=== PATIENT | female | born 1950 | race Caucasian/White ===

== ENCOUNTER 2018-12-14 16:12 | Emergency (ER) | payer OTHER, MEDICARE, BC ==
[2018-12-14 16:21] VITALS: BP 120/83
--- NOTE | 2018-12-14 17:42 | EDM.PDOC ---
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 The patient reports she tripped over an oxygen machine and landed on her left wrist. The patient reports diffuse tenderness in her shoulders and tenderness to her right cheek. Onset: Today Duration: Constant Location: Reports: Upper Extremity, Left Quality: Reports: Ache Severity: Moderate Improves with: Reports: None Worsens with: Reports: None Associated Symptoms: Reports: No Other Symptoms - Related Data Allergies Allergy/AdvReac Type Severity Reaction Status Date / Time No Known Allergies Allergy Verified 03/20/16 08:43 Home Meds: Home Meds Lisinopril/Hydrochlorothiazide [Lisinopril-Hctz 20-12.5 mg Tab] 1 tab PO DAILY 07/11/14 [History] Omeprazole 20 mg PO DAILY 07/11/14 [History] Levothyroxine Sodium 125 mcg PO DAILY 12/29/15 [History] Metoprolol Succinate [Toprol XL] 100 mg PO DAILY 12/29/15 [History] Oxybutynin 5 mg PO TID PRN 12/29/15 [History] buPROPion HCl [Wellbutrin Xl] 300 mg PO DAILY 12/29/15 [History] Hydrocodone/Acetaminophen [Hydrocodon-Acetaminophn 10-325] 1 tab PO ASDIRECTED PRN 03/20/16 [History] Ibuprofen [Motrin] 800 mg PO Q6H PRN 03/20/16 [History] Past Medical History - Past Health History Medical/Surgical History: Denies Medical/Surgical History HEENT History: Reports: Impaired Vision Other HEENT History: wears glasses Cardiovascular History: Reports: Hypertension Respiratory History: Reports: Bronchitis, Recurrent, Pneumonia, Recurrent Gastrointestinal History: Reports: GERD Genitourinary History: Reports: Renal Calculus, Urinary Incontinence Musculoskeletal History: Reports: Osteoporosis Neurological History: Reports: None Psychiatric History: Reports: Depression Endocrine/Metabolic History: Reports: Hypothyroidism Hematologic History: Reports: None Immunologic History: Reports: None Oncologic (Cancer) History: Reports: None Dermatologic History: Reports: None - Infectious Disease History Infectious Disease History: Reports: Chicken Pox, Measles, Mumps - Past Surgical History GI Surgical History: Reports: Appendectomy, Colonoscopy, EGD Female Surgical History: Reports: Hysterectomy, Oophorectomy Social & Family History - Family History Family Medical History: Noncontributory GI: Reports: GERD Oncologic: Reports: Lung - Caffeine Use Caffeine Use: Reports: Coffee - Living Situation & Occupation Living situation: Reports: with Family Occupation: Employed Review of Systems - Review of Systems Review Of Systems: ROS reveals no pertinent complaints other than HPI. ED EXAM, GENERAL - Physical Exam Exam: See Below Exam Limited By: No Limitations General Appearance: Alert, WD/WN, No Apparent Distress Eye Exam: Bilateral Eye: EOMI, Normal Inspection, PERRL Ears: Normal External Exam, Normal Canal, Hearing Grossly Normal, Normal TMs Nose: Normal Inspection, Normal Mucosa, No Blood Throat/Mouth: Normal Inspection, Normal Lips, Normal Teeth, Normal Gums, Normal Oropharynx, Normal Voice, No Airway Compromise Head: Atraumatic, Normocephalic Neck: Normal Inspection, Supple, Non-Tender, Full Range of Motion Respiratory/Chest: No Respiratory Distress, Lungs Clear, Normal Breath Sounds, No Accessory Muscle Use, Chest Non-Tender Cardiovascular: Normal Peripheral Pulses, Regular Rate, Rhythm, No Edema, No Gallop, No JVD, No Murmur, No Rub GI/Abdominal: Normal Bowel Sounds, Soft, Non-Tender, No Organomegaly, No Distention, No Abnormal Bruit, No Mass (Female) Exam: Deferred Rectal (Female) Exam: Deferred Back Exam: Normal Inspection, Full Range of Motion, NT Extremities: Other (left rist tenderness, swelling and loss of range of motion. Bilateral shoulder tenderness to palpation. ) Neurological: Alert, Oriented, CN II-XII Intact, Normal Cognition, Normal Gait, Normal Reflexes, No Motor/Sensory Deficits Psychiatric: Normal Affect, Normal Mood Skin Exam: Warm, Dry, Intact, Normal Color, No Rash Lymphatic: No Adenopathy Course - Vital Signs Last Recorded V/S: Last Vital Signs Temp 35.4 C 12/14/18 16:19 Pulse 77 12/14/18 16:19 Resp 18 12/14/18 16:19 BP 120/83 12/14/18 16:19 Pulse Ox 98 12/14/18 16:19 - Orders/Labs/Meds Orders: Active Orders 24 hr Category Date Time Status Wrist Comp Min 3V Lt [CR] Urgent Exams 12/14/18 16:34 Ordered Departure - Departure Time of Disposition: 17:37 Disposition: Home, Self-Care 01 Condition: Fair Clinical Impression: Strain of left wrist Qualifiers: Encounter type: initial encounter Qualified Code(s): S66.912A - Strain of unspecified muscle, fascia and tendon at wrist and hand level, left hand, initial encounter - Discharge Information *PRESCRIPTION DRUG MONITORING PROGRAM REVIEWED*: Not Applicable *COPY OF PRESCRIPTION DRUG MONITORING REPORT IN PATIENT ROSARIO: Not Applicable Instructions: Wrist Sprain, Adult Forms: ED Department Discharge Care Plan Goals: The patient was advised of the examination and x-ray results during the visit. The patient was placed in a left wrist splint while in the ED. The patient was encouraged to rest, ice and elevate her wrist over the next 24 hours. The patient's rings were removed during the visit (3 were removed without difficulties and 1 was cut off). If the patient has any additional symptoms or concerns, the patient should either return to the emergency department or visit her primary care facility. - My Orders Last 24 Hours: My Active Orders 12/14/18 16:34 Wrist Comp Min 3V Lt [CR] Urgent - Assessment/Plan Last 24 Hours: My Active Orders 12/14/18 16:34 Wrist Comp Min 3V Lt [CR] Urgent I have read and agree with the documentation that has been completed regarding this visit. By signing this record, I attest that the documentation was completed in my physical presence and is an accurate record of the encounter.
== END 2018-12-14 17:55 | disposition home or self-care (01) ==
LOC: DL.ED 16:12
DX: S66.912A Strain of unspecified muscle, fascia and tendon at wrist and hand level, left hand, initial encounter (principal); I10 Essential (primary) hypertension; K21.9 Gastro-esophageal reflux disease without esophagitis; E03.9 Hypothyroidism, unspecified; Y99.0 Civilian activity done for income or pay; W18.09XA Striking against other object with subsequent fall, initial encounter; Z79.899 Other long term (current) drug therapy
CPT/HCPCS: 73110-LT; 99283-25

== ENCOUNTER 2020-05-23 11:45 | Inpatient (IN) | payer MEDICARE, BC ==
--- NOTE | 2020-05-23 11:40 | PCM.HP ---
H&P History of Present Illness - General Date of Service: 05/23/20 Admit Problem/Dx: Admission Diagnosis/Problem Admission Diagnosis/Problem Fall Source of Information: Patient, Old Records - History of Present Illness Initial Comments - Free Text/Narative: Patient is a 69-year-old female with medical history significant for hypertension, hypothyroidism, overactive bladder, depression who was admitted for intractable right hip pain, minimal displaced fracture involving the right pubic bone extending into the right superior pubic ramus. Patient worked with PT and OT. Had some improvement but not back to baseline. She is being admitted to swing bed to continue therapies. Continues to have pain with movement. Denies f/c, chest pain, shortness of breath, n/v/d/c, dysuria, hematuria, or any new symptoms. - Related Data Allergies/Adverse Reactions: Allergies Allergy/AdvReac Type Severity Reaction Status Date / Time No Known Allergies Allergy Verified 05/18/20 20:57 Home Medications: Home Meds Lisinopril/Hydrochlorothiazide [Lisinopril-Hctz 20-12.5 mg Tab] 12.5 mg PO DAILY 07/11/14 [History] Omeprazole 20 mg PO DAILY 07/11/14 [History] Metoprolol Succinate [Toprol XL] 100 mg PO DAILY 12/29/15 [History] buPROPion HCL [Wellbutrin Xl] 300 mg PO DAILY 12/29/15 [History] Aspirin [[place] Aspirin] 81 mg PO DAILY 05/18/20 [History] Mirabegron [Myrbetriq] 25 mg PO DAILY 05/18/20 [History] Tolterodine [Detrol LA 24 Hr] 2 mg PO DAILY 05/18/20 [History] Venlafaxine HCl [Venlafaxine ER] 37.5 mg PO DAILY 05/18/20 [History] Levothyroxine 112 mcg PO ACBREAKFAST 05/23/20 [History] Past Medical History - Past Health History Medical/Surgical History: Denies Medical/Surgical History HEENT History: Reports: Impaired Vision Other HEENT History: wears glasses Cardiovascular History: Reports: Hypertension Respiratory History: Reports: Bronchitis, Recurrent, Pneumonia, Recurrent Gastrointestinal History: Reports: GERD Genitourinary History: Reports: Chronic Renal Insuffiency, Renal Calculus, Urinary Incontinence Musculoskeletal History: Reports: Osteoporosis Neurological History: Reports: None Psychiatric History: Reports: Depression Endocrine/Metabolic History: Reports: Hypothyroidism Hematologic History: Reports: None Immunologic History: Reports: None Oncologic (Cancer) History: Reports: None Dermatologic History: Reports: None - Infectious Disease History Infectious Disease History: Reports: Chicken Pox, Measles, Mumps - Past Surgical History Head Surgeries/Procedures: Reports: None GI Surgical History: Reports: Appendectomy, Colonoscopy, EGD Female Surgical History: Reports: Hysterectomy, Oophorectomy Social & Family History - Family History Family Medical History: No Pertinent Family History GI: Reports: GERD Oncologic: Reports: Lung - Caffeine Use Caffeine Use: Reports: Coffee - Living Situation & Occupation Living situation: Reports: with Family Occupation: Employed H&P Review of Systems - Review of Systems: Review Of Systems: Comprehensive ROS is negative, except as noted in HPI. Exam - Exam Exam: See Below - Exam General: Alert, Oriented, Mild Distress HEENT: Conjunctiva Clear, EOMI, Mucosa Moist & [place] Neck: Supple, Trachea Midline Lungs: Clear to Auscultation, Normal Respiratory Effort Cardiovascular: Regular Rate, Regular Rhythm, Normal S1, Normal S2 GI/Abdominal Exam: Normal Bowel Sounds, Soft, Non-Tender, No Distention Extremities: Normal Inspection, Normal Range of Motion, No Pedal Edema Peripheral Pulses: 2+: Radial (L), Dorsalis Pedis (L), Dorsalis Pedis (R) Skin: Warm, Dry, Intact Neuro Extensive - Mental Status: Alert, Oriented x3, Normal Mood/Affect Psychiatric: Alert, Normal Affect, Normal Mood - Problem List (1) Hypertension SNOMED Code(s): 77922980 ICD Code: I10 - ESSENTIAL (PRIMARY) HYPERTENSION Status: Acute (2) Hypothyroidism SNOMED Code(s): 06900413 ICD Code: E03.9 - HYPOTHYROIDISM, UNSPECIFIED Status: Acute (3) Odynophagia SNOMED Code(s): 23365052 ICD Code: R13.10 - DYSPHAGIA, UNSPECIFIED Status: Acute (4) Pubic bone fracture SNOMED Code(s): 72024128 ICD Code: S32.509A - UNSP FRACTURE OF UNSP PUBIS, INIT ENCNTR FOR CLOSED FRACTURE Status: Acute Problem List Initiated/Reviewed/Updated: Yes Orders Last 24hrs: Active Orders 24 hr Category Date Time Status Patient Status [ADT] Routine ADT 05/23/20 11:32 Ordered Intake and Output [RC] QSHIFT Care 05/23/20 11:29 Ordered Oxygen Therapy [RC] PRN Care 05/23/20 11:29 Ordered Oxygen Therapy [RC] PRN Care 05/23/20 11:32 Ordered Up ad Marie [RC] ASDIRECTED Care 05/23/20 11:29 Ordered VTE/DVT Education [RC] PER UNIT ROUTINE Care 05/23/20 11:29 Ordered VTE/DVT Education [RC] PER UNIT ROUTINE Care 05/23/20 11:32 Ordered Vital Signs [RC] Q4H Care 05/23/20 11:29 Ordered Vital Signs [RC] QSHIFT Care 05/23/20 11:32 Ordered Consult to Occupational Therapy [OT Evaluation and Cons 05/23/20 11:29 Ordered Treatment] [CONS] Routine Consult to Physical Therapy [PT Evaluation and Cons 05/23/20 11:29 Ordered Treatment] [CONS] Routine OT Evaluation and Treatment [CONS] Routine Cons 05/23/20 11:29 Ordered Regular Diet [DIET] Diet 05/23/20 Breakfast Ordered Acetaminophen [TylenoL] Med 05/23/20 11:29 Ordered 650 mg PO Q4H PRN Alum Hydrox/Mag Hydrox/Simeth [Mag-Al Plus] Med 05/23/20 11:30 Ordered 30 ml PO TID@0730,1130,1630 Aspirin Med 05/24/20 09:00 Ordered 81 mg PO DAILY Docusate Sodium [Colace] Med 05/23/20 11:29 Ordered 100 mg PO BID PRN Enoxaparin [Lovenox] Med 05/24/20 09:00 Ordered 40 mg SUBCUT DAILY HYDROmorphone [Dilaudid] Med 05/23/20 11:29 Ordered 0.5 mg IVPUSH Q2H PRN Levothyroxine [Synthroid] Med 05/24/20 06:00 Ordered 100 mcg PO ACBRK Lidocaine 5% [Lidoderm 5%] Med 05/24/20 09:00 Ordered 700 mg TOP DAILY@0900 Metoprolol Succinate [Toprol XL] Med 05/24/20 09:00 Ordered 100 mg PO DAILY Metoprolol Succinate [Toprol XL] Med 05/24/20 09:00 Ordered 100 mg PO DAILY Mirabegron [Myrbetriq] Med 05/24/20 09:00 Ordered 25 mg PO DAILY Omeprazole Med 05/24/20 09:00 Ordered 20 mg PO DAILY Omeprazole Med 05/24/20 09:00 Ordered 20 mg PO DAILY Ondansetron [Zofran] Med 05/23/20 11:29 Ordered 4 mg IVPUSH Q4H PRN Remove Patch Med 05/23/20 21:00 Ordered 1 ea TRDERM BEDTIME Sodium Chloride 0.9% [Saline Flush] Med 05/23/20 11:29 Ordered 10 ml FLUSH ASDIRECTED PRN Sodium Chloride 0.9% [Saline Flush] Med 05/23/20 11:29 Ordered 10 ml FLUSH ASDIRECTED PRN Tolterodine [Detrol LA 24 Hr] Med 05/24/20 09:00 Ordered 2 mg PO DAILY Tolterodine [Detrol LA 24 Hr] Med 05/24/20 09:00 Ordered 2 mg PO DAILY Venlafaxine [Effexor XR] Med 05/24/20 09:00 Ordered 37.5 mg PO DAILY buPROPion HCL [Wellbutrin Xl] Med 05/24/20 09:00 Ordered 300 mg PO DAILY buPROPion [Wellbutrin XL] Med 05/24/20 09:00 Ordered 300 mg PO DAILY lisinopriL [Prinivil] Med 05/24/20 09:00 Ordered 20 mg PO DAILY oxyCODONE Med 05/23/20 11:29 Ordered 5 mg PO Q4H PRN polyethylene glycoL 3350 [MiraLAX] Med 05/23/20 11:29 Ordered 17 gm PO DAILY PRN Saline Lock Insert [OM.PC] Routine Oth 05/23/20 11:29 Ordered Resuscitation Status Routine Resus Stat 05/23/20 11:32 Ordered Medication Orders Acetaminophen (Tylenol) 650 mg PO Q4H PRN PRN Reason: Pain (Mild 1-3)/fever Al Hydroxide/Mg Hydroxide (Mag-Al Plus) 30 ml PO TID@0730,1130,1630 [facility] Aspirin (Aspirin) 81 mg PO DAILY [facility] Bupropion HCl (Wellbutrin Xl) 300 mg PO DAILY [facility] Docusate Sodium (Colace) 100 mg PO BID PRN PRN Reason: Constipation Enoxaparin Sodium (Lovenox) 40 mg SUBCUT DAILY [facility] Hydromorphone HCl (Dilaudid) 0.5 mg IVPUSH Q2H PRN PRN Reason: Pain (severe 7-10) Levothyroxine Sodium (Synthroid) 100 mcg PO ACBRK [facility] Lidocaine (Lidoderm 5%) 700 mg TOP DAILY@0900 [facility] Lisinopril (Prinivil) 20 mg PO DAILY [facility] Metoprolol Succinate (Toprol Xl) 100 mg PO DAILY [facility] Miscellaneous Information (Remove Patch) 1 ea TRDERM BEDTIME [facility] Omeprazole (Omeprazole) 20 mg PO DAILY [facility] Ondansetron HCl (Zofran) 4 mg IVPUSH Q4H PRN PRN Reason: Nausea/Vomiting Oxycodone HCl (Oxycodone) 5 mg PO Q4H PRN PRN Reason: Pain (moderate 4-6) Polyethylene Glycol (Miralax) 17 gm PO DAILY PRN PRN Reason: Constipation Sodium Chloride (Saline Flush) 10 ml FLUSH ASDIRECTED PRN PRN Reason: Keep Vein Open Sodium Chloride (Saline Flush) 10 ml FLUSH ASDIRECTED PRN PRN Reason: Keep Vein Open Tolterodine Tartrate (Detrol La 24 Hr) 2 mg PO DAILY [facility] Venlafaxine HCl (Effexor Xr) 37.5 mg PO DAILY [facility] Assessment/Plan Comment:: Patient is a 69-year-old female with medical history significant for hypertension, hypothyroidism, overactive bladder, depression who was admitted for intractable right hip pain, minimal displaced fracture involving the right pubic bone extending into the right superior pubic ramus. #Intractable right hip pain #Fracture of right pubic bone #Fall Patient present with right hip pain after fall. MRI showed acutely minimally displaced fracture involving the right pubic bone extending into the right superior pubic ramus. 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 -Continue pain regimen -PT and OT -Fall precautions #Hypertension: Blood pressures at goal Continue Toprol and lisinopril Hold antihypertensives for systolic blood pressures less than 110. #Odynophagia/Dysphagia: -Patient reports substernal pain with swallowing. Feels pills and food get stuck. -Trial of maalox -Swallow eval. #Hyypokalemia: K was 3.4 on 05/18 - Check renal function panel. #Hypothyroidism Continue Synthroid DVT prophylaxis: Heparin GI prophylaxis: Cardiac diet
[~2020-05-23 11:45] MED LIST: Acetaminophen 325 MG Tab PO PRN; Docusate Sodium 100 MG Cap PO PRN; HYDROmorphone 0.5 MG/0.5 ML Syringe IVPUSH PRN; Ondansetron 4 MG/2 ML SDV IVPUSH PRN; Polyethylene Glycol 3350 Powder 17 GM Packet PO PRN; Sodium Chloride 0.9% 10 ML Syringe FLUSH PRN
[2020-05-23] MEDS: Aluminum Hydroxide/Magnesium Hydroxide/Simethicone Susp 30 ML Cup PO SCH ×2 (13:20→16:37)
[2020-05-23] MEDS: oxyCODONE 5 MG Tab PO PRN ×2 (13:28→17:37)
[2020-05-24] MEDS: oxyCODONE 5 MG Tab PO PRN ×4 (00:59→22:44)
[2020-05-24] MEDS: Levothyroxine 100 MCG Tab PO SCH (06:49)
[2020-05-24] MEDS: Aluminum Hydroxide/Magnesium Hydroxide/Simethicone Susp 30 ML Cup PO SCH ×3 (07:49→17:00)
[2020-05-24] MEDS: Omeprazole 20 MG Cap.CR PO SCH (08:30)
[2020-05-24] MEDS: buPROPion 150 MG Tab.ER PO SCH (08:30)
[2020-05-24] MEDS: Metoprolol Succinate 50 MG Tab.ER PO SCH (08:30)
[2020-05-24] MEDS: Lidocaine 5% 700 MG Patch TOP SCH (08:31)
[2020-05-24] MEDS: Tolterodine 2 MG Cap.ER PO SCH (08:31)
[2020-05-24] MEDS: Enoxaparin 40 MG/0.4 ML Syringe SUBCUT SCH (08:31)
[2020-05-24] MEDS: Lisinopril 20 MG Tab PO SCH (08:31)
[2020-05-24] MEDS: Venlafaxine 37.5 MG Cap.ER PO SCH (08:31)
[2020-05-24] MEDS: Aspirin 81 MG Tab.Chew PO SCH (08:31)
[2020-05-24] MEDS ORDERED: Tolterodine 2 MG Cap.ER PO SCH (09:00)
[2020-05-24] MEDS ORDERED: Non-Formulary Medication 1 Each (Metoprolol Succinate [Toprol Xl] 100 MG) PO SCH (09:00)
[2020-05-24] MEDS ORDERED: Omeprazole 20 MG Cap.CR PO SCH (09:00)
[2020-05-24] MEDS ORDERED: Non-Formulary Medication 1 Each (Bupropion Hcl [Wellbutrin Xl] 300 MG) PO SCH (09:00)
[2020-05-25] MEDS: oxyCODONE 5 MG Tab PO PRN ×4 (04:09→21:47)
[2020-05-25] MEDS: Levothyroxine 100 MCG Tab PO SCH (05:48)
[2020-05-25] MEDS: Enoxaparin 40 MG/0.4 ML Syringe SUBCUT SCH (08:48)
[2020-05-25] MEDS: Aluminum Hydroxide/Magnesium Hydroxide/Simethicone Susp 30 ML Cup PO SCH ×3 (08:48→16:43)
[2020-05-25] MEDS: Metoprolol Succinate 50 MG Tab.ER PO SCH (08:48)
[2020-05-25] MEDS: Lidocaine 5% 700 MG Patch TOP SCH (08:49)
[2020-05-25] MEDS: Tolterodine 2 MG Cap.ER PO SCH (08:49)
[2020-05-25] MEDS: Venlafaxine 37.5 MG Cap.ER PO SCH (08:49)
[2020-05-25] MEDS: buPROPion 150 MG Tab.ER PO SCH (08:49)
[2020-05-25] MEDS: Aspirin 81 MG Tab.Chew PO SCH (08:49)
[2020-05-25] MEDS: Lisinopril 20 MG Tab PO SCH (08:49)
[2020-05-25] MEDS: Omeprazole 20 MG Cap.CR PO SCH (08:49)
[2020-05-26] MEDS: oxyCODONE 5 MG Tab PO PRN ×2 (04:21→10:29)
[2020-05-26] MEDS: Levothyroxine 100 MCG Tab PO SCH (06:39)
--- NOTE | 2020-05-26 09:38 | PCM.DCSUM1 ---
Discharge Summary - Hospital Course Free Text/Narrative:: Patient is a 69-year-old female with medical history significant for hypertension, hypothyroidism, overactive bladder, depression who was admitted for intractable right hip pain, minimal displaced fracture involving the right pubic bone extending into the right superior pubic ramus. Patient worked with PT and OT. Had some improvement but not back to baseline. Shewas admitted to swing bed to continue therapies. Patient's activity tolerance improved over the weekend. She is being discharged home. She will need front wheel walker with skis to decrease her risk of falls. HPI Initial Comments: Patient is a 69-year-old female with medical history significant for hypertension, hypothyroidism, overactive bladder, depression who was admitted for intractable right hip pain, minimal displaced fracture involving the right pubic bone extending into the right superior pubic ramus. Patient worked with PT and OT. Had some improvement but not back to baseline. She is being admitted to swing bed to continue therapies. Continues to have pain with movement. Denies f/c, chest pain, shortness of breath, n/v/d/c, dysuria, hematuria, or any new symptoms. Diagnosis: Stroke: No - Discharge Data Discharge Date: 05/26/20 Discharge Disposition: Home, Self-Care 01 Condition: Good - Referral to Home Health Primary Care Physician: MINH Koo - Discharge Diagnosis/Problem(s) (1) Hypertension SNOMED Code(s): 00135531 ICD Code: I10 - ESSENTIAL (PRIMARY) HYPERTENSION Status: Acute Current Visit: No (2) Hypothyroidism SNOMED Code(s): 03540233 ICD Code: E03.9 - HYPOTHYROIDISM, UNSPECIFIED Status: Acute Current Visit: No (3) Odynophagia SNOMED Code(s): 93387199 ICD Code: R13.10 - DYSPHAGIA, UNSPECIFIED Status: Acute Current Visit: No (4) Pubic bone fracture SNOMED Code(s): 07368212 ICD Code: S32.509A - UNSP FRACTURE OF UNSP PUBIS, INIT ENCNTR FOR CLOSED FRACTURE Status: Acute Current Visit: No - Patient Summary/Data Consults: Consultations 05/23/20 11:29 Consult to Occupational Therapy [OT Evaluation and Treatment] [CONS] Routine Consult to Physical Therapy [PT Evaluation and Treatment] [CONS] Routine OT Evaluation and Treatment [CONS] Routine - Patient Instructions Activity: As Tolerated, No Lifting Over 10 Pounds, No Strenuous Activities - Discharge Plan *PRESCRIPTION DRUG MONITORING PROGRAM REVIEWED*: No *COPY OF PRESCRIPTION DRUG MONITORING REPORT IN PATIENT ROSARIO: No Prescriptions/Med Rec: Acetaminophen [Tylenol] 650 mg PO Q4H PRN #60 tablet PRN Reason: Pain Home Medications: Home Meds Lisinopril/Hydrochlorothiazide [Lisinopril-Hctz 20-12.5 mg Tab] 12.5 mg PO DAILY 07/11/14 [History] Omeprazole 20 mg PO DAILY 07/11/14 [History] Metoprolol Succinate [Toprol XL] 100 mg PO DAILY 12/29/15 [History] buPROPion HCL [Wellbutrin Xl] 300 mg PO DAILY 12/29/15 [History] Aspirin [[place] Aspirin] 81 mg PO DAILY 05/18/20 [History] Mirabegron [Myrbetriq] 25 mg PO DAILY 05/18/20 [History] Tolterodine [Detrol LA 24 Hr] 2 mg PO DAILY 05/18/20 [History] Venlafaxine HCl [Venlafaxine ER] 37.5 mg PO DAILY 05/18/20 [History] Levothyroxine 112 mcg PO ACBREAKFAST 05/23/20 [History] Acetaminophen [Tylenol] 650 mg PO Q4H PRN #60 tablet 05/26/20 [Rx] Oxygen Therapy Mode: Room Air - Discharge Summary/Plan Comment DC Time >30 min.: Yes - General Info Date of Service: 05/26/20 Admission Dx/Problem (Free Text: Admission Diagnosis/Problem Admission Diagnosis/Problem Fall Subjective Update: Reports gait is improved and has been ambulating on her own. Continues to have pain with movement. Denies f/c, chest pain, shortness of breath, n/v/d/c, dysuria, hematuria, or any new symptoms. - Patient Data Vitals - Most Recent: Last Vital Signs Temp 97.8 F 05/25/20 21:34 Pulse 65 05/25/20 21:34 Resp 14 05/25/20 21:34 BP 140/70 05/25/20 21:34 Pulse Ox 99 05/25/20 21:34 Weight - Most Recent: 151 lb I&O - Last 24 hours: Intake & Output 05/25/20 05/26/2020 22:59 06:59 14:59 Intake Total 1210 Balance 1210 Med Orders - Current: Current Medications Acetaminophen (Tylenol) 650 mg PO Q4H PRN PRN Reason: Pain (Mild 1-3)/fever Al Hydroxide/Mg Hydroxide (Mag-Al Plus) 30 ml PO TID@0730,1130,1630 [facility] Last Admin: 05/25/20 16:43 Dose: 30 ml Documented by: Aspirin (Aspirin) 81 mg PO DAILY [facility] Last Admin: 05/25/20 08:49 Dose: 81 mg Documented by: Bupropion HCl (Wellbutrin Xl) 300 mg PO DAILY [facility] Last Admin: 05/25/20 08:49 Dose: 300 mg Documented by: Docusate Sodium (Colace) 100 mg PO BID PRN PRN Reason: Constipation Enoxaparin Sodium (Lovenox) 40 mg SUBCUT DAILY [facility] Last Admin: 05/25/20 08:48 Dose: 40 mg Documented by: Levothyroxine Sodium (Synthroid) 100 mcg PO ACBRK [facility] Last Admin: 05/26/20 06:39 Dose: 100 mcg Documented by: Lidocaine (Lidoderm 5%) 700 mg TOP DAILY@0900 [facility] Last Admin: 05/25/20 08:49 Dose: 700 mg Documented by: Lisinopril (Prinivil) 20 mg PO DAILY [facility] Last Admin: 05/25/20 08:49 Dose: 20 mg Documented by: Metoprolol Succinate (Toprol Xl) 100 mg PO DAILY [facility] Last Admin: 05/25/20 08:48 Dose: 100 mg Documented by: Miscellaneous Information (Remove Patch) 1 ea TRDERM BEDTIME [facility] Last Admin: 05/25/20 21:38 Dose: Not Given Documented by: Omeprazole (Omeprazole) 20 mg PO DAILY [facility] Last Admin: 05/25/20 08:49 Dose: 20 mg Documented by: Oxycodone HCl (Oxycodone) 5 mg PO Q4H PRN PRN Reason: Pain (moderate 4-6) Last Admin: 05/26/20 04:21 Dose: 5 mg Documented by: (Mirabegron [ Myrbetriq] 25 Mg)*Pt Own Med* 0 each PO DAILY [facility] Last Admin: 05/25/20 08:50 Dose: 1 each Documented by: Polyethylene Glycol (Miralax) 17 gm PO DAILY PRN PRN Reason: Constipation Tolterodine Tartrate (Detrol La 24 Hr) 2 mg PO DAILY [facility] Last Admin: 05/25/20 08:49 Dose: 2 mg Documented by: Venlafaxine HCl (Effexor Xr) 37.5 mg PO DAILY [facility] Last Admin: 05/25/20 08:49 Dose: 37.5 mg Documented by: Discontinued Medications Hydromorphone HCl (Dilaudid) 0.5 mg IVPUSH Q2H PRN PRN Reason: Pain (severe 7-10) Omeprazole (Omeprazole) 20 mg PO DAILY [facility] Ondansetron HCl (Zofran) 4 mg IVPUSH Q4H PRN PRN Reason: Nausea/Vomiting Sodium Chloride (Saline Flush) 10 ml FLUSH ASDIRECTED PRN PRN Reason: Keep Vein Open - Exam General: Reports: Alert, Oriented, Cooperative, Mild Distress HEENT: Reports: Pupils Equal, Pupils Reactive, Mucous Membr. Moist/[place] Neck: Reports: Supple Lungs: Reports: Clear to Auscultation, Normal Respiratory Effort Cardiovascular: Reports: Regular Rate, Regular Rhythm, No Murmurs GI/Abdominal Exam: Normal Bowel Sounds, Soft, Non-Tender, No Distention Extremities: Normal Inspection, Non-Tender, No Pedal Edema Skin: Reports: Warm, Dry, Intact Neurological: Reports: No New Focal Deficit Psy/Mental Status: Reports: Alert, Normal Affect, Normal Mood
[2020-05-26] MEDS: Aluminum Hydroxide/Magnesium Hydroxide/Simethicone Susp 30 ML Cup PO SCH (10:23)
[2020-05-26] MEDS: Enoxaparin 40 MG/0.4 ML Syringe SUBCUT SCH (10:24)
[2020-05-26] MEDS: buPROPion 150 MG Tab.ER PO SCH (10:24)
[2020-05-26] MEDS: Omeprazole 20 MG Cap.CR PO SCH (10:25)
[2020-05-26] MEDS: Metoprolol Succinate 50 MG Tab.ER PO SCH (10:25)
[2020-05-26] MEDS: Tolterodine 2 MG Cap.ER PO SCH (10:25)
[2020-05-26] MEDS: Lisinopril 20 MG Tab PO SCH (10:26)
[2020-05-26] MEDS: Aspirin 81 MG Tab.Chew PO SCH (10:26)
[2020-05-26] MEDS: Venlafaxine 37.5 MG Cap.ER PO SCH (10:26)
[2020-05-26] MEDS: Lidocaine 5% 700 MG Patch TOP SCH (10:32)
[2020-05-26 11:24] VITALS: BP 130/72; PULSE 71
== END 2020-05-26 12:30 | disposition home or self-care (01) | DRG 536 ==
LOC: DL.MS 11:45
PROVIDERS: ADMIT Internal Medicine; ATTEND Internal Medicine
DX: S32.511A Fracture of superior rim of right pubis, initial encounter for closed fracture (principal); W18.30XA Fall on same level, unspecified, initial encounter; Y92.89 Other specified places as the place of occurrence of the external cause; E03.9 Hypothyroidism, unspecified; N32.81 Overactive bladder; F32.9 Major depressive disorder, single episode, unspecified; R13.10 Dysphagia, unspecified; K21.9 Gastro-esophageal reflux disease without esophagitis; I12.9 Hypertensive chronic kidney disease with stage 1 through stage 4 chronic kidney disease, or unspecified chronic kidney disease; N18.9 Chronic kidney disease, unspecified; Z87.01 Personal history of pneumonia (recurrent); Z90.710 Acquired absence of both cervix and uterus; Z90.49 Acquired absence of other specified parts of digestive tract; E87.6 Hypokalemia
CPT/HCPCS: 97162-GP; 97165-GO; 99316; A9270-GY; J1650

== ENCOUNTER 2020-06-19 05:42 | Day surgery (SDC) | payer MEDICARE, BC ==
[~2020-06-19 05:42] MED LIST changes: -Acetaminophen 325 MG Tab PO PRN; -Docusate Sodium 100 MG Cap PO PRN; -HYDROmorphone 0.5 MG/0.5 ML Syringe IVPUSH PRN; +Midazolam 1 MG/ML 2 ML SDV ONE; -Ondansetron 4 MG/2 ML SDV IVPUSH PRN; -Polyethylene Glycol 3350 Powder 17 GM Packet PO PRN; -Sodium Chloride 0.9% 10 ML Syringe FLUSH PRN; +fentaNYL 100 MCG/2 ML SDV ONE
[2020-06-19] MEDS ORDERED: fentaNYL 100 MCG/2 ML SDV IV ONE ×3 (05:43→07:42)
[2020-06-19] MEDS ORDERED: Midazolam 1 MG/ML 2 ML SDV IV ONE ×3 (05:43→07:43)
[2020-06-19] MEDS ORDERED: Sodium Chloride 0.9% 10 ML Syringe FLUSH PRN (06:00)
[2020-06-19] MEDS ORDERED: Dextrose 5%-0.45% NaCl 1,000 ML IV SCH (06:00)
--- NOTE | 2020-06-19 09:07 | OR ---
DATE: 06/19/2020 PROCEDURE DONE: Esophageal dilatation. INSTRUMENT USED: Martin bougie dilator, Mexican size 48. PREMEDICATIONS: Done after EGD. INDICATION: Constricting Schatzki's ring. PROCEDURE IN DETAIL: Esophageal dilatation was done with ease using Mexican size 48 dilator. No blood was noted at dilated tip after completion. IMPRESSION: Constricting Schatzki's ring. The patient tolerated the procedure well. [facility] /[id number]
--- NOTE | 2020-06-19 09:07 | OR ---
DATE: 06/19/2020 PROCEDURE: Esophagogastroduodenoscopy and multiple pinch biopsies. INSTRUMENT USED: GIF-HQ190 Olympus video panendoscope. PREMEDICATIONS: No oral or topical anesthesia used. Fentanyl 100 mcg intravenous, Versed 2 mg intravenous. The procedure was done under pulse oximetry, BP recording, and bus driver/monitor. INDICATION: The patient with persistent upper abdominal as well as chest pain along with dysphagia. Esophagogastroduodenoscopy is performed for detection of any active erosive lesions, Keller esophagus and/or malignancy also under consideration, H pylori status to be determined, small bowel biopsies to be obtained for celiac disease if indicated, esophageal dilatations if indicated, endoscopic hemostasis therapy if needed. PROCEDURE IN DETAIL: The scope was passed with ease. Adequate visualization of the esophagus was made from proximal to distal areas. No upper esophageal lesions identified. No uphill or downhill esophageal varices. No Pearl-Alvarez tear. No evidence of erosive esophagitis by [place] criteria. No esophageal polyp or tumor mass identified. Constricting Schatzki's ring was noted. No proximal gastric varices noted. Gastric fundus examination by retroflexion showed no polypoid lesions. No gastric ulcer, malignant mass, or vascular ectasia identified. Patchy erythema of the gastric antrum was noted. Duodenal bulb showed no ulcer. Visualized second part of the duodenum was unremarkable. Multiple pinch biopsies, 4 in number, were taken from different areas of the second part of the duodenum and tissues were also obtained from duodenal bulb at 9 and 12 o'clock positions and sent for any histopathologic evidence of celiac disease. Multiple pinch biopsies were also taken from the gastric antrum and proximal body and sent for PyloriTek test for H pylori and histopathology. No bleeding was noted from any of the visualized areas at the completion of examination. IMPRESSION: 1. Patchy antral gastritis. 2. Constricting Schatzki's ring. The patient tolerated the procedure well. [facility] /[id number]
[2020-06-19 11:24] VITALS: BP 97/48; PULSE 66
== END 2020-06-19 10:07 | disposition home or self-care (01) ==
LOC: DL.ENDO 05:42
PROVIDERS: ATTEND Internal Medicine Gastroenterology
DX: K22.2 Esophageal obstruction (principal); K29.80 Duodenitis without bleeding; F41.1 Generalized anxiety disorder; F32.9 Major depressive disorder, single episode, unspecified; I10 Essential (primary) hypertension; E03.9 Hypothyroidism, unspecified; Z87.891 Personal history of nicotine dependence; K21.9 Gastro-esophageal reflux disease without esophagitis; Z98.890 Other specified postprocedural states; Z90.89 Acquired absence of other organs; Z79.899 Other long term (current) drug therapy
CPT/HCPCS: 43239; 43450; 87077; 88305; J2250; J3010; J7042

== ENCOUNTER 2020-11-11 05:27 | Day surgery (SDC) | payer MEDICARE, BC ==
[~2020-11-11 05:27] MED LIST changes: +Dextrose 5%-0.45% NaCl 1,000 ML IV SCH; +Sodium Chloride 0.9% 10 ML Syringe FLUSH PRN
[2020-11-11] MEDS ORDERED: Midazolam 1 MG/ML 2 ML SDV IV ONE ×6 (05:28→06:46)
[2020-11-11] MEDS ORDERED: fentaNYL 100 MCG/2 ML SDV IV ONE ×3 (05:28→06:40)
--- NOTE | 2020-11-11 08:48 | OR ---
DATE: 11/11/2020 PROCEDURE: Total colonoscopy. INSTRUMENT USED: PCF-H190DL Olympus video colonoscope. PREMEDICATIONS: Fentanyl 100 mcg intravenous, Versed 3.5 mg intravenous. Nasal O2 cannula. The procedure was done under pulse oximetry, BP recording, and youth nutritional monitor. INDICATION: Screening colonoscopic examination is done for detection of any polypoid lesions and removal, endoscopic hemostasis therapy if needed. DESCRIPTION OF PROCEDURE: Initial rectal exam showed external hemorrhoidal tags. Rigid anoscopy showed small internal hemorrhoids without bleeding from them. The colonoscope was passed with ease up to ileocecal area. Photographs were taken of the normal-appearing cecum identified by double-bulged ileocecal folds. No bleeding was noted from any of the visualized areas at the commencement of the examination. There was large amount of fluid material and some solid stools that had to be aspirated. Webster scale 2 in all the regions, total score 6. No stricture. No vascular ectasia. No large isolated ulcerations seen. No evidence of diffuse inflammatory bowel disease in the form of friability, contact bleeding, or ulcerations. No polyp or tumor mass identified. Probing the proximal sides of folds and flexures using adequate distention and clearing up the stool material, withdrawal of the scope was made, cecum to rectum time over 6 minutes. No bleeding was noted from any of the visualized areas at the completion of examination. IMPRESSION: External and internal hemorrhoids. The patient tolerated the procedure well. [facility] /[id number]
[2020-11-11 11:03] VITALS: BP 122/65; PULSE 63
== END 2020-11-11 09:05 | disposition home or self-care (01) ==
LOC: DL.ENDO 05:27
PROVIDERS: ATTEND Internal Medicine Gastroenterology
DX: Z12.11 Encounter for screening for malignant neoplasm of colon (principal); K64.4 Residual hemorrhoidal skin tags; K64.8 Other hemorrhoids
CPT/HCPCS: G0121; J2250; J3010; J7042

== ENCOUNTER 2021-07-24 06:02 | Day surgery (SDC) | payer MEDICARE, BC ==
[2021-07-24] MEDS ORDERED: fentaNYL 100 MCG/2 ML SDV IV ONE ×3 (06:03→08:37)
[2021-07-24] MEDS ORDERED: Midazolam 1 MG/ML 2 ML SDV IV ONE ×3 (06:03→08:39)
[2021-07-24 11:49] VITALS: BP 102/73; PULSE 66
== END 2021-07-24 10:55 | disposition home or self-care (01) ==
LOC: DL.ENDO 06:02
PROVIDERS: ATTEND Internal Medicine Gastroenterology
DX: R13.10 Dysphagia, unspecified (principal); K21.9 Gastro-esophageal reflux disease without esophagitis; F41.1 Generalized anxiety disorder; I10 Essential (primary) hypertension; E03.9 Hypothyroidism, unspecified; N20.0 Calculus of kidney; Z98.890 Other specified postprocedural states; Z01.812 Encounter for preprocedural laboratory examination; Z20.822 Contact with and (suspected) exposure to COVID-19
CPT/HCPCS: 43239; J2250; J3010; J7042; U0002; 88305

== ENCOUNTER 2022-05-11 07:57 | Emergency (ER) | payer MEDICARE, BC ==
[2022-05-11 07:54] VITALS: BP 138/88; PULSE 88
[~2022-05-11 07:57] MED LIST changes: +Acetaminophen 325 MG Tab PO ONE; -Dextrose 5%-0.45% NaCl 1,000 ML IV SCH; -Midazolam 1 MG/ML 2 ML SDV ONE; -Sodium Chloride 0.9% 10 ML Syringe FLUSH PRN; -fentaNYL 100 MCG/2 ML SDV ONE
[2022-05-11 07:58] LABS: ANION GAP 12.1 mEq/L (7-13)
[2022-05-11 08:13] LABS: CORONAVIRUS COVID-19 NAA NEGATIVE (NEGATIVE)
[2022-05-11] MEDS ORDERED: methylPREDNISolone Sodium Succinate 125 MG/2 ML SDV IVPUSH ONE (08:42)
== END 2022-05-11 08:58 | disposition home or self-care (01) ==
LOC: DL.ED 07:57
DX: J44.1 Chronic obstructive pulmonary disease with (acute) exacerbation (principal); K21.9 Gastro-esophageal reflux disease without esophagitis; I12.9 Hypertensive chronic kidney disease with stage 1 through stage 4 chronic kidney disease, or unspecified chronic kidney disease; N18.9 Chronic kidney disease, unspecified; E03.9 Hypothyroidism, unspecified; Z79.82 Long term (current) use of aspirin; Z79.899 Other long term (current) drug therapy; Z20.822 Contact with and (suspected) exposure to COVID-19
CPT/HCPCS: 0240U; 36415; 71045; 80053; 83605; 84484; 85025; 85379; 87040; 93005; 96374; 99285; A9270; J2930

== ENCOUNTER 2022-06-15 18:32 | Emergency (ER) | payer MEDICARE, BC | END 2022-06-15 21:38 | disposition left against medical advice (07) | LOC: DL.ED 18:32 | DX: Z53.21 Procedure and treatment not carried out due to patient leaving prior to being seen by health care provider (principal) ==

== ENCOUNTER 2022-06-15 21:53 | Emergency (ER) | payer MEDICARE, BC ==
[2022-06-15 23:27] VITALS: PULSE 79
[2022-06-15 23:39] VITALS: BP 106/63
[2022-06-16 00:07] LABS: ANION GAP 14.5 mEq/L (7-13)
[2022-06-16] MEDS ORDERED: Azithromycin 250 MG Tab PO ONE (01:48)
[2022-06-16] MEDS ORDERED: Albuterol/Ipratropium 3.0-0.5 MG/3 ML Neb Soln NEB ONE (01:48)
[2022-06-16] MEDS ORDERED: Benzonatate 100 MG Cap PO ONE (01:48)
[2022-06-16] MEDS ORDERED: methylPREDNISolone Sodium Succinate 125 MG/2 ML SDV IVPUSH ONE (01:48)
[2022-06-16 02:12] LABS: CORONAVIRUS COVID-19 NAA NEGATIVE (NEGATIVE); RESPIRATORY SYNCYTIAL VIR NAA NEGATIVE (NEGATIVE)
== END 2022-06-16 02:24 | disposition home or self-care (01) ==
LOC: DL.ED 21:53
DX: J44.1 Chronic obstructive pulmonary disease with (acute) exacerbation (principal); I12.9 Hypertensive chronic kidney disease with stage 1 through stage 4 chronic kidney disease, or unspecified chronic kidney disease; N18.9 Chronic kidney disease, unspecified; E03.9 Hypothyroidism, unspecified; K21.9 Gastro-esophageal reflux disease without esophagitis; Z79.82 Long term (current) use of aspirin; Z79.899 Other long term (current) drug therapy; Z87.891 Personal history of nicotine dependence; Z20.822 Contact with and (suspected) exposure to COVID-19
CPT/HCPCS: 0241U; 36415; 71046; 80053; 85025; 94640; 96374; 99284; A9270; J2930; J7620-GY

== ENCOUNTER 2022-10-25 11:06 | Inpatient (IN) | payer MEDICARE, BC ==
[2022-10-25] MEDS ORDERED: fentaNYL 100 MCG/2 ML SDV IVPUSH ONE ×2 (11:22→11:40)
[2022-10-25] MEDS ORDERED: Ondansetron 4 MG/2 ML SDV IV ONE ×3 (11:22→16:55)
[2022-10-25] MEDS: Sodium Chloride 0.9% 10 ML Syringe FLUSH PRN ×3 (11:37→21:10)
[2022-10-25] MEDS ORDERED: Sodium Chloride 0.9% 10 ML Syringe FLUSH PRN (12:31)
[2022-10-25] MEDS ORDERED: HYDROmorphone 1 MG/ML Syringe IVPUSH ONE ×2 (12:31→14:37)
[2022-10-25] MEDS ORDERED: Ketorolac 30 MG/ML SDV IVPUSH ONE (14:38)
[2022-10-25 15:06] LABS: APPEARANCE,URINE CLEAR (CLEAR); BILIRUBIN,URINE SMALL (NEGATIVE); COLOR,URINE YELLOW (YELLOW); GLUCOSE,URINE NEGATIVE (NEGATIVE); KETONES,URINE NEGATIVE (NEGATIVE); LEUKOCYTE ESTERASE,URINE NEGATIVE (NEGATIVE); NITRITE,URINE NEGATIVE (NEGATIVE); OCCULT BLOOD,URINE NEGATIVE (NEGATIVE); PROTEIN,URINE 30 (NEGATIVE)
[2022-10-25 15:18] LABS: BACTERIA,URINE MODERATE /HPF (0-FEW/HPF); EPITHELIAL CELLS,URINE MODERATE /HPF (NOT SEEN); RBC,URINE 0-5 /HPF (0-5); WBC,URINE 0-5 /HPF (0-5/HPF)
[2022-10-25 15:19] LABS: AMORPHOUS SEDIMENT,URINE FEW /HPF (NOT SEEN); MUCUS,URINE MODERATE /LPF (NOT SEEN)
[2022-10-25] MEDS ORDERED: Dexamethasone 4 MG/ML SDV IVPUSH ONE (16:55)
[2022-10-25] MEDS ORDERED: HYDROmorphone 0.5 MG/0.5 ML Syringe IVPUSH ONE (16:55)
[2022-10-25] MEDS ORDERED: HYDROmorphone 0.5 MG/0.5 ML Syringe IVPUSH PRN (17:32)
[2022-10-25] MEDS ORDERED: Albuterol 0.083% 2.5 MG/3 ML Neb Soln NEB PRN (17:37)
[2022-10-25] MEDS ORDERED: Melatonin 3 MG Tab PO PRN (17:41)
[2022-10-25 18:05] LABS: BASOPHILS PERCENT AUTO 0.4 % (0.0-1.0); EOSINOPHILS PERCENT AUTO 1.1 % (1.0-3.0); HEMATOCRIT 38.2 % (37.0-47.0); HEMOGLOBIN 12.3 g/dL (12.0-16.0); LYMPHOCYTES PERCENT AUTO 14.3 % (20.5-50.1); MEAN CORPUSCULAR HEMOGLOBIN 32.9 pg (27.0-34.0); MEAN CORPUSCULAR HGB CONC 32.2 g/dL (33.0-35.0); MEAN CORPUSCULAR VOLUME 102.1 fL (80-100); MONOCYTES PERCENT AUTO 7.7 % (2-8); NEUTROPHILS PERCENT AUTO 76.5 % (42.2-75.2); PLATELET COUNT,PLT 167 10^3/uL (150-450); RED BLOOD CELL COUNT 3.74 10^6/uL (4.2-5.4); WHITE BLOOD CELL COUNT,WBC 8.1 10^3/uL (5.0-10.0)
[2022-10-25] MEDS ORDERED: Albuterol/Ipratropium 3.0-0.5 MG/3 ML Neb Soln INH PRN (18:10)
[2022-10-25 18:19] LABS: ANION GAP 11.9 mEq/L (7-13); CALCIUM 8.9 mg/dL (8.5-10.1); CREATININE 1.37 mg/dL (0.55-1.02); EST CRCL DRUG DOSING (CG) 36.34 mL/min; POTASSIUM,K 3.9 mmol/L (3.5-5.1)
[2022-10-25] MEDS: HYDROmorphone 0.5 MG/0.5 ML Syringe IVPUSH PRN (18:19)
[2022-10-25] MEDS: Ondansetron 4 MG/2 ML SDV IVPUSH SCH ×2 (18:29→23:34)
[2022-10-25] MEDS: Ketorolac 30 MG/ML SDV IVPUSH SCH (20:48)
[2022-10-25] MEDS: Rosuvastatin 10 MG Tab PO SCH (20:49)
[2022-10-25] MEDS: FORMOTEROL 20 MCG/2 ML INH SCH (22:03)
[2022-10-26] MEDS: Ketorolac 30 MG/ML SDV IVPUSH SCH ×4 (02:03→20:22)
[2022-10-26] MEDS: HYDROmorphone 0.5 MG/0.5 ML Syringe IVPUSH PRN ×3 (02:36→14:28)
[2022-10-26] MEDS: Ondansetron 4 MG/2 ML SDV IVPUSH SCH ×3 (05:35→17:02)
[2022-10-26] MEDS: Acetaminophen/oxyCODONE 325-5 MG Tab PO PRN ×2 (07:13→11:24)
[2022-10-26] MEDS: Metoprolol Succinate 50 MG Tab.ER PO SCH (08:13)
[2022-10-26] MEDS: Aspirin 81 MG Tab.EC PO SCH (08:14)
[2022-10-26] MEDS: Lisinopril 20 MG Tab PO SCH (08:14)
[2022-10-26] MEDS: Venlafaxine 37.5 MG Cap.ER PO SCH (08:14)
[2022-10-26] MEDS: Levothyroxine 100 MCG Tab PO SCH (08:15)
[2022-10-26] MEDS: Hydrochlorothiazide 25 MG Tab PO SCH (08:15)
[2022-10-26] MEDS: Enoxaparin 40 MG/0.4 ML Syringe SUBCUT SCH (08:16)
[2022-10-26] MEDS ORDERED: Non-Formulary Medication 1 Each (Fluticasone/Vilanterol 1 EACH Each) INH SCH (09:00)
[2022-10-26] MEDS: FORMOTEROL 20 MCG/2 ML INH SCH ×2 (09:10→20:41)
[2022-10-26] MEDS: Gabapentin 300 MG Cap PO SCH (10:29)
[2022-10-26] MEDS: Budesonide 0.5 MG/2 ML Neb Susp INH SCH ×2 (10:33→20:27)
[2022-10-26] MEDS: predniSONE 10 MG Tab PO SCH (13:17)
[2022-10-26] MEDS: Rosuvastatin 10 MG Tab PO SCH (20:23)
[2022-10-27] MEDS: Ondansetron 4 MG/2 ML SDV IVPUSH SCH ×3 (00:42→12:35)
[2022-10-27] MEDS: Ketorolac 30 MG/ML SDV IVPUSH SCH ×2 (02:33→08:39)
[2022-10-27] MEDS: Sodium Chloride 0.9% 10 ML Syringe FLUSH PRN (02:33)
[2022-10-27] MEDS: cefTRIAXone 2 GM Vial IVPUSH SCH (08:45)
[2022-10-27] MEDS: Venlafaxine 37.5 MG Cap.ER PO SCH (08:48)
[2022-10-27] MEDS: predniSONE 10 MG Tab PO SCH (08:48)
[2022-10-27] MEDS: Gabapentin 300 MG Cap PO SCH ×2 (08:49→12:34)
[2022-10-27] MEDS: Hydrochlorothiazide 25 MG Tab PO SCH (08:49)
[2022-10-27] MEDS: Metoprolol Succinate 50 MG Tab.ER PO SCH (08:49)
[2022-10-27] MEDS: Lisinopril 20 MG Tab PO SCH (08:50)
[2022-10-27] MEDS: Aspirin 81 MG Tab.EC PO SCH (08:50)
[2022-10-27] MEDS: Levothyroxine 100 MCG Tab PO SCH (08:50)
[2022-10-27] MEDS: Enoxaparin 40 MG/0.4 ML Syringe SUBCUT SCH (08:50)
[2022-10-27] MEDS: Budesonide 0.5 MG/2 ML Neb Susp INH SCH ×2 (08:58→20:43)
[2022-10-27] MEDS: FORMOTEROL 20 MCG/2 ML INH SCH ×2 (09:00→20:43)
[2022-10-27] MEDS: Bisacodyl 5 MG Tab PO PRN (09:04)
[2022-10-27 09:08] LABS: APPEARANCE,URINE CLEAR (CLEAR); BILIRUBIN,URINE NEGATIVE (NEGATIVE); COLOR,URINE YELLOW (YELLOW); GLUCOSE,URINE NEGATIVE (NEGATIVE); KETONES,URINE NEGATIVE (NEGATIVE); LEUKOCYTE ESTERASE,URINE NEGATIVE (NEGATIVE); NITRITE,URINE NEGATIVE (NEGATIVE); OCCULT BLOOD,URINE NEGATIVE (NEGATIVE); PH,URINE 5.5 (5.0-9.0); PROTEIN,URINE NEGATIVE (NEGATIVE); UROBILINOGEN,URINE 0.2 mg/dL (0.2-1.0)
[2022-10-27 09:13] LABS: RBC,URINE NOT SEEN /HPF (0-5); WBC,URINE 0-5 /HPF (0-5/HPF)
[2022-10-27 09:14] LABS: BACTERIA,URINE RARE /HPF (0-FEW/HPF); EPITHELIAL CELLS,URINE RARE /HPF (NOT SEEN); HYALINE CASTS,URINE OCCASIONAL; MUCUS,URINE RARE /LPF (NOT SEEN)
[2022-10-27] MEDS: Acetaminophen/oxyCODONE 325-5 MG Tab PO PRN ×2 (09:52→21:56)
[2022-10-27] MEDS ORDERED: Gabapentin 300 MG Cap PO SCH (10:15)
[2022-10-27] MEDS: Polyethylene Glycol 3350 Powder 17 GM Packet PO PRN (12:32)
[2022-10-27] MEDS: Acetaminophen 325 MG Tab PO PRN (12:33)
[2022-10-27] MEDS ORDERED: Ondansetron 4 MG/2 ML SDV IVPUSH PRN (13:14)
[2022-10-27] MEDS: guaiFENesin 600 MG Tab.ER PO SCH ×2 (13:53→20:35)
[2022-10-27] MEDS ORDERED: Ketorolac 30 MG/ML SDV IVPUSH PRN (14:00)
[2022-10-27] MEDS: HYDROmorphone 0.5 MG/0.5 ML Syringe IVPUSH PRN (15:02)
[2022-10-27] MEDS: Rosuvastatin 10 MG Tab PO SCH (20:37)
[2022-10-28] MEDS: Acetaminophen/oxyCODONE 325-5 MG Tab PO PRN ×4 (06:05→22:14)
[2022-10-28] MEDS: cefTRIAXone 2 GM Vial IVPUSH SCH (07:34)
[2022-10-28] MEDS: Sodium Chloride 0.9% 10 ML Syringe FLUSH PRN (07:35)
[2022-10-28] MEDS: Venlafaxine 37.5 MG Cap.ER PO SCH (08:33)
[2022-10-28] MEDS: Gabapentin 300 MG Cap PO SCH (08:33)
[2022-10-28] MEDS: Metoprolol Succinate 50 MG Tab.ER PO SCH (08:34)
[2022-10-28] MEDS: Hydrochlorothiazide 25 MG Tab PO SCH (08:35)
[2022-10-28] MEDS: Aspirin 81 MG Tab.EC PO SCH (08:35)
[2022-10-28] MEDS: predniSONE 10 MG Tab PO SCH (08:35)
[2022-10-28] MEDS: Docusate Sodium 100 MG Cap PO PRN (08:36)
[2022-10-28] MEDS: guaiFENesin 600 MG Tab.ER PO SCH ×2 (08:36→21:08)
[2022-10-28] MEDS: Lisinopril 20 MG Tab PO SCH (08:36)
[2022-10-28] MEDS: Levothyroxine 100 MCG Tab PO SCH (08:36)
[2022-10-28] MEDS: Budesonide 0.5 MG/2 ML Neb Susp INH SCH ×2 (08:36→21:07)
[2022-10-28] MEDS: Enoxaparin 40 MG/0.4 ML Syringe SUBCUT SCH (08:37)
[2022-10-28] MEDS: FORMOTEROL 20 MCG/2 ML INH SCH ×2 (08:38→21:09)
[2022-10-28] MEDS: Acetaminophen 325 MG Tab PO PRN (14:59)
[2022-10-28] MEDS: Rosuvastatin 10 MG Tab PO SCH (21:08)
[2022-10-28] MEDS: Bisacodyl 5 MG Tab PO PRN (21:08)
[2022-10-29] MEDS: Acetaminophen/oxyCODONE 325-5 MG Tab PO PRN ×2 (07:14→16:39)
[2022-10-29] MEDS: predniSONE 10 MG Tab PO SCH (08:30)
[2022-10-29] MEDS: Levothyroxine 100 MCG Tab PO SCH (08:31)
[2022-10-29] MEDS: Aspirin 81 MG Tab.EC PO SCH (08:32)
[2022-10-29] MEDS: guaiFENesin 600 MG Tab.ER PO SCH (08:32)
[2022-10-29] MEDS: Hydrochlorothiazide 25 MG Tab PO SCH (08:32)
[2022-10-29] MEDS: Metoprolol Succinate 50 MG Tab.ER PO SCH (08:33)
[2022-10-29] MEDS: Lisinopril 20 MG Tab PO SCH (08:33)
[2022-10-29] MEDS: Docusate Sodium 100 MG Cap PO PRN (08:33)
[2022-10-29] MEDS: Enoxaparin 40 MG/0.4 ML Syringe SUBCUT SCH (08:34)
[2022-10-29] MEDS: Venlafaxine 37.5 MG Cap.ER PO SCH (08:34)
[2022-10-29] MEDS: Gabapentin 300 MG Cap PO SCH (08:34)
[2022-10-29] MEDS: Budesonide 0.5 MG/2 ML Neb Susp INH SCH (08:35)
[2022-10-29] MEDS: Polyethylene Glycol 3350 Powder 17 GM Packet PO PRN (08:36)
[2022-10-29] MEDS: FORMOTEROL 20 MCG/2 ML INH SCH (08:39)
[2022-10-29] MEDS ORDERED: amLODIPine 5 MG Tab PO SCH (09:00)
[2022-10-29] MEDS: Acetaminophen 325 MG Tab PO PRN (09:29)
[2022-10-29] MEDS: cefTRIAXone 2 GM Vial IVPUSH SCH (09:31)
[2022-10-29] MEDS ORDERED: traMADol 50 MG Tab PO PRN (11:31)
[2022-10-29 11:57] VITALS: BP 134/65; PULSE 59
== END 2022-10-29 18:00 | disposition home or self-care (01) | DRG 552 ==
LOC: DL.ED 11:06 → DL.MS 17:10 → DL.ED 17:13 → UNDOADMOB 17:21 → DL.MS 17:21 → OBSVTOIN 10-26 12:26
PROVIDERS: ADMIT Internal Medicine; ATTEND Internal Medicine
DX: M54.16 Radiculopathy, lumbar region (principal); J20.9 Acute bronchitis, unspecified; E78.5 Hyperlipidemia, unspecified; N18.30 Chronic kidney disease, stage 3 unspecified; I12.9 Hypertensive chronic kidney disease with stage 1 through stage 4 chronic kidney disease, or unspecified chronic kidney disease; R32 Unspecified urinary incontinence; H91.90 Unspecified hearing loss, unspecified ear; H54.7 Unspecified visual loss; K21.9 Gastro-esophageal reflux disease without esophagitis; G47.33 Obstructive sleep apnea (adult) (pediatric); M81.0 Age-related osteoporosis without current pathological fracture; R50.9 Fever, unspecified; G89.29 Other chronic pain; M54.9 Dorsalgia, unspecified; E03.9 Hypothyroidism, unspecified; F41.9 Anxiety disorder, unspecified; F32.A Depression, unspecified; Z98.49 Cataract extraction status, unspecified eye; Z98.890 Other specified postprocedural states; Z79.82 Long term (current) use of aspirin; Z79.890 Hormone replacement therapy; Z79.899 Other long term (current) drug therapy; Z90.721 Acquired absence of ovaries, unilateral; Z87.891 Personal history of nicotine dependence; Z90.710 Acquired absence of both cervix and uterus
CPT/HCPCS: 36415; 72131; 73590-LT; 76999; 80048; 81001; 85025; 87086; 94640; 96372; 96374; 96375; 96376; 97116-GP; 97161-GP; 97165-GO; 97530-GO; 99222; 99232; 99239; 99283; 99285-25; A9270-GY; G0378; J0696; J1100; J1170; J1650; J1885; J2405; J3010; J3490; J7512; J7606; J7620-GY

== ENCOUNTER 2024-11-26 05:27 | Day surgery (SDC) | payer MEDICARE, BC ==
[2024-11-26] MEDS ORDERED: Lactated Ringers 1,000 ML IV ONE (05:28)
[2024-11-26] MEDS ORDERED: Propofol 200 MG/20 ML SDV IV ONE (05:28)
[2024-11-26] MEDS ORDERED: Dextrose 5%-0.45% NaCl 1,000 ML IV ONE (05:28)
[2024-11-26] MEDS ORDERED: Lidocaine 2% 20 ML MDV NERVRT ONE (05:28)
[2024-11-26] MEDS ORDERED: Lidocaine 2% 20 ML MDV ONE (05:40)
[2024-11-26] MEDS ORDERED: Propofol 200 MG/20 ML SDV ONE (05:40)
[2024-11-26] MEDS: Lactated Ringers 1,000 ML IV SCH (05:52)
[2024-11-26 08:38] VITALS: BP 166/78; PULSE 60
== END 2024-11-26 08:58 | disposition home or self-care (01) ==
LOC: DL.ENDO 05:27
PROVIDERS: ATTEND Internal Medicine Gastroenterology
DX: K31.819 Angiodysplasia of stomach and duodenum without bleeding (principal); K31.84 Gastroparesis; R13.10 Dysphagia, unspecified; K21.9 Gastro-esophageal reflux disease without esophagitis; I10 Essential (primary) hypertension
CPT/HCPCS: 88305; J2003; J2704; J7120

== ENCOUNTER 2024-11-27 14:45 | Emergency (ER) | payer MEDICARE, BC ==
[2024-11-27 15:03] LABS: BASOPHILS PERCENT AUTO 0.7 % (0.0-1.0); HEMATOCRIT 41.5 % (37.0-47.0); HEMOGLOBIN 14.2 g/dL (12.0-16.0); LYMPHOCYTES PERCENT AUTO 29.5 % (20.5-50.1); MEAN CORPUSCULAR HGB CONC 34.2 g/dL (33.0-35.0); MEAN CORPUSCULAR VOLUME 96.5 fL (80-100); NEUTROPHILS PERCENT AUTO 55.8 % (42.2-75.2); PLATELET COUNT,PLT 175 10^3/uL (150-450); WHITE BLOOD CELL COUNT,WBC 5.5 10^3/uL (5.0-10.0)
[2024-11-27 15:25] LABS: A/G RATIO 1.3; ALBUMIN 3.9 g/dL (3.4-5.0); ANION GAP 13.9 mEq/L (7-13); BILIRUBIN TOTAL 0.5 mg/dL (0.2-1.0); BUN/CREATININE RATIO 14.5 (No establ ref range); CALCIUM 9.4 mg/dL (8.5-10.1); CREATININE 1.31 mg/dL (0.55-1.02); EST CRCL DRUG DOSING (CG) 36.85 mL/min; POTASSIUM,K 3.9 mmol/L (3.5-5.1)
[2024-11-27 15:39] VITALS: BP 151/93; PULSE 67
== END 2024-11-27 15:43 | disposition home or self-care (01) ==
LOC: DL.ED 14:45
DX: M94.0 Chondrocostal junction syndrome [Tietze] (principal); I12.9 Hypertensive chronic kidney disease with stage 1 through stage 4 chronic kidney disease, or unspecified chronic kidney disease; N18.9 Chronic kidney disease, unspecified; K21.9 Gastro-esophageal reflux disease without esophagitis; E03.9 Hypothyroidism, unspecified; Z79.82 Long term (current) use of aspirin; Z79.890 Hormone replacement therapy; Z79.899 Other long term (current) drug therapy; Z90.49 Acquired absence of other specified parts of digestive tract; Z90.710 Acquired absence of both cervix and uterus
CPT/HCPCS: 36415; 80053; 84484; 85025; 99284